=== PATIENT | female | born 2000 | race American Indian/Alaskan Native ===

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

== ENCOUNTER 2020-08-12 00:56 | Outpatient (CLI) | payer MEDICAID ==
[2020-08-12 01:08] VITALS: BP 110/57
[2020-08-12] MEDS ORDERED: LACTATED RINGERS 500 ML IV ONE (01:58)
[2020-08-12] MEDS ORDERED: TERBUTALINE 1 MG/1 ML INJ SUB-Q ONE (03:39)
[2020-08-12 03:52] LABS: Bacteria,Urine 1+ /HPF (Negative); Bilirubin,Urine NEG (Negative); Blood,Urine NEG (Negative); Color,Urine Straw (Yellow); Protein,Urine <15 mg/dL mg/dL (Negative); RBC,Urine < 1.0 /HPF (0.0-6.0); Urobilinogen,Urine < 2.0 mg/dL (<2.0)
== END 2020-08-12 05:33 | disposition home or self-care (01) ==
LOC: TRG 00:56 → APU 00:59 → TRG 05:33
PROVIDERS: ATTEND Obstetrics & Gynecology
DX: O62.9 Abnormality of forces of labor, unspecified (principal); Z3A.31 31 weeks gestation of pregnancy
CPT/HCPCS: 59025; 81001; 96360; 96374

== ENCOUNTER 2020-08-24 17:41 | Outpatient (CLI) | payer MEDICAID ==
[2020-08-24] MEDS ORDERED: LACTATED RINGERS 1,000 ML IV SCH (18:15)
[2020-08-24 18:53] LABS: Bacteria,Urine 1+ /HPF (Negative); Bilirubin,Urine NEG (Negative); Blood,Urine NEG (Negative); Color,Urine Straw (Yellow); Protein,Urine <15 mg/dL mg/dL (Negative); Urobilinogen,Urine < 2.0 mg/dL (<2.0)
[2020-08-24] MEDS ORDERED: TERBUTALINE 1 MG/1 ML INJ SUB-Q SCH (19:00)
[2020-08-24 19:24] VITALS: BP 110/77
[2020-08-24] MEDS ORDERED: ACETAMINOPHEN 500 MG TAB PO ONE (20:47)
== END 2020-08-24 22:05 | disposition home or self-care (01) ==
LOC: APU 17:41 → TRG 17:41 → APU 17:42 → TRG 22:05
PROVIDERS: ATTEND Obstetrics & Gynecology
DX: O62.9 Abnormality of forces of labor, unspecified (principal); O26.893 Other specified pregnancy related conditions, third trimester; R51.9 Headache, unspecified; Z3A.32 32 weeks gestation of pregnancy
CPT/HCPCS: 59025; 81001; 96361; 96365; J0690; J7120; 96360

== ENCOUNTER 2020-09-05 22:23 | Outpatient (CLI) | payer MEDICAID ==
[2020-09-05 23:01] VITALS: BP 123/79
[2020-09-05] MEDS ORDERED: LACTATED RINGERS 1,000 ML IV ONE (23:01)
[2020-09-06 00:32] LABS: Bacteria,Urine 1+ /HPF (Negative); Bilirubin,Urine NEG (Negative); Blood,Urine NEG (Negative); Color,Urine Yellow (Yellow); Mucus,Urine FEW /HPF; Protein,Urine <15 mg/dL mg/dL (Negative); RBC,Urine < 1.0 /HPF (0.0-6.0); Urobilinogen,Urine < 2.0 mg/dL (<2.0)
== END 2020-09-06 01:58 | disposition home or self-care (01) ==
LOC: TRG 22:23 → APU 22:24 → TRG 09-06 01:58
PROVIDERS: ATTEND Obstetrics & Gynecology
DX: O26.853 Spotting complicating pregnancy, third trimester (principal); O47.03 False labor before 37 completed weeks of gestation, third trimester; Z3A.34 34 weeks gestation of pregnancy
CPT/HCPCS: 59025; 81001; 96360; J7120